=== PATIENT | female | born 1970 | race Hispanic/Latino ===

== ENCOUNTER 2017-07-11 18:16 | Emergency (ER) | payer SELFPAY ==
[2017-07-11 18:57] LABS: Bilirubin Small (Negative); Blood, Urine Negative (Negative); Glucose, Urine (Dipstick) Negative (Negative); Ketone, Urine > or equal to 80 mg/dL (Negative); Nitrite Negative (Negative); Protein, Urine (Dipstick) Trace mg/dL (Neg-Trace)
[2017-07-11 18:58] LABS: Bacteria/HPF 4+ HPF (None Seen); Squamous Epithelial 21-50 HPF (0-3); WBC/HPF 21-50 HPF (0-3)
[2017-07-11 19:14] LABS: Hyaline Casts/LPF NONE SEEN LPF (0-3 Hyaline); RBC/HPF 0-3 HPF (0-3)
[2017-07-11 19:16] LABS: #Basophils 0.1 thou/uL (0.0-0.2); #Eosinphils 0.1 thou/uL (0.0-0.7); #Lymphocytes 2.2 thou/uL (1.20-3.40); #Monocytes 0.5 thou/uL (0.11-0.59); #Neutrophils 4.6 thou/uL (1.40-6.50); %Basophils 0.8 % (0.0-1.0); %Eosinophils 1.2 % (0.0-10.0); %Lymphocytes 29.4 % (21.0-51.0); %Monocytes 6.6 % (0.0-10.0); Hematocrit 44.6 % (36.0-47.0); Mean Platelet Volume 7.4 fL (7.4-10.4); Red Blood Cell (RBC) Count 5.11 mill/uL (4.20-5.40); White Blood Cell (WBC) Count 7.5 thou/uL (4.8-10.8)
[2017-07-11 19:40] LABS: ALT (SGPT) 26 U/L (8-55); AST (SGOT) 20 U/L (5-34); Alkaline Phosphatase 103 U/L (40-150); Anion Gap 14 mmol/L (10-20); BUN (Urea Nitrogen) 6 mg/dL (7.0-18.7); Bilirubin, Total 0.6 mg/dL (0.2-1.2); Calc. Creatinine Clearance 0 mL/min (70-130); Calcium 9.5 mg/dL (7.8-10.44); Carbon Dioxide 17 mmol/L (22-29); Chloride 106 mmol/L (98-107); Estimated GFR-MDRD Greater than 90; Globulin 3.6 g/dL (2.4-3.5); Protein, Total 7.5 g/dL (6.0-8.3)
[2017-07-11] MEDS ORDERED: Metoclopramide HCl 10 MG/2 ML VIAL ONE (20:12)
[2017-07-11 21:40] LABS: Bilirubin Small (Negative); Blood, Urine Trace (Negative); Glucose, Urine (Dipstick) Negative (Negative); Ketone, Urine > or equal to 80 mg/dL (Negative); Nitrite Negative (Negative); Protein, Urine (Dipstick) Negative (Neg-Trace)
[2017-07-11 21:42] LABS: Bacteria/HPF None Seen HPF (None Seen); RBC/HPF 0-3 HPF (0-3); WBC/HPF 0-3 HPF (0-3)
--- NOTE | 2017-07-11 21:48 | ULT ---
OBSTETRIC SONOGRAM TRANSABDOMINAL IMAGING 07/11/17 HISTORY: Early . Pelvic pain. FINDINGS: Multiple transabdominal sonographic views of the gravid uterus show a single intrauterine gestation i n variable presentation. Heart motion is demonstrated at 160 beats per minute. Amniotic fluid is with in normal limits. Grade 0 placenta is posterior. Early gestational age limits anatomic detail. Measurements are as follows: Biparietal diameter 12 weeks, 6 days Head circumference 13 weeks, 0 days Abdominal circumference 12 weeks, 6 days Femur length 12 weeks, 2 days Estimated date of delivery based on today's sonogram is 01/19/18. No free fluid is apparent within the pelvis. Each ovary has a normal appearance and demonstrates good color and spectral doppler flow. IMPRESSION: Single viable intrauterine gestation with estimated gestational age based on today's sonogram of 12 w eeks, 4 days. No significant abnormalities are apparent. POS: [facility]
[2017-07-11 21:51] LABS: Hyaline Casts/LPF 0-3 HYALINE CAST LPF (0-3 Hyaline)
== END 2017-07-11 22:10 | disposition home or self-care (01) ==
LOC: ERS 18:16
DX: O09.512 Supervision of elderly primigravida, second trimester (principal); O21.0 Mild hyperemesis gravidarum; O99.282 Endocrine, nutritional and metabolic diseases complicating pregnancy, second trimester; E03.9 Hypothyroidism, unspecified; Z79.899 Other long term (current) drug therapy; Z3A.20 20 weeks gestation of pregnancy
CPT/HCPCS: 36415; 51701; 76856; 80053; 81003; 81015; 81025; 83690; 84702; 85025; 87086; 96361; 96374; A4353; J2765

== ENCOUNTER 2017-08-28 06:55 | Outpatient (CLI) | payer OTHER | END 2017-08-28 06:56 | disposition home or self-care (01) | LOC: BICULT 06:55 | PROVIDERS: ATTEND Family Medicine | DX: Z34.92 Encounter for supervision of normal pregnancy, unspecified, second trimester (principal); Z3A.19 19 weeks gestation of pregnancy | CPT/HCPCS: 76805 ==

== ENCOUNTER 2018-01-02 12:31 | Day surgery (SDC) | payer MEDICAID, SELFPAY ==
[2018-01-02 12:45] VITALS: BMI 31.6
--- NOTE | 2018-01-02 14:14 | ULT ---
NONSTRESS BIOPHYSICAL PROFILE: HISTORY: Status post dates. COMPARISON: None. FINDINGS: Single intrauterine gestation. Presentation is vertex. Posterior placenta. The umbilical artery ap pears to be at the level of the endocervical os. Cervical length is 5.5 cm. heart tones with a rate of 152 b.p.m. There is a 3.8 x 2.2 x 4.0 cm hypoechoic focus in the anterior aspect uterine wall compatible with a uterine leiomyoma. Amniotic fluid index of 12.6 cm. Umbilical artery at the placenta, peak systolic is 84.0 cm/s and end-systolic is 38.2 cm/s. Systolic ICA to CCA ratio is 2.2. Mid umbilical arteries peak systolic is 117.3 cm/s, end-diastolic 74.3 cm/s. Systolic ICA to CCA rat io is 1.58. presentation is transverse. The placenta is posterior. At the cord insertion, peak systolic velocity is 71.4 cm/s and the end-systolic velocity is 28.2 cm/s . SD ratio is 2.53. NONSTRESS BIOPHYSICAL PROFILE: tone: 2. breathin. movement: 2. Amniotic fluid: 2. Total score: 8 out of 8. IMPRESSION: 1. Nonstress biophysical profile score 8 out of 8. 2. Intrauterine leiomyoma. 3. The umbilical artery appears to be at the level of the inner cervical os. 4. For gestation age of 38.3 weeks, the 50th percentile SD ratio is 2.26, 90th percentile SD ratio i s 3.26. Resistive index 50% percentile is 0.55, 95th percentile resistive index is 0.69. Pulsatilit y index is 0.77 for 50% and 1.11 for 95th percentile. 5. Results of the study discussed with Dr. Whelan 01/02/18 at 2:46 p.m. CODE CR POS: [facility]
== END 2018-01-02 16:03 | disposition home or self-care (01) ==
LOC: L&D/OP 12:31 → UNDOADMIN 13:45 → L&D 13:45 → L&D/OP 16:03
PROVIDERS: ATTEND Family Medicine
DX: O34.13 Maternal care for benign tumor of corpus uteri, third trimester (principal); Z3A.38 38 weeks gestation of pregnancy; Z88.0 Allergy status to penicillin
CPT/HCPCS: 76815; 76819; 93976; 99282